=== PATIENT | female | born 1995 | race Caucasian/White ===

== ENCOUNTER 2018-09-10 15:21 | Outpatient (CLI) | payer OTHER ==
[2018-09-10 15:59] LABS: MEAN CORPUSCULAR HEMOGLOBIN 28.4 pg (28.0-34.0)
[2018-09-10 16:00] LABS: BASOPHILS % 1.3 (0.0-1.5); EOSINOPHILS % 1.4 % (0.0-6.8); MONOCYTES % 7.7 % (0.0-11.0); NEUTROPHILS # 1.7 # k/uL (1.4-7.7)
[2018-09-10 16:04] LABS: eGFR (Non-African) > 60
== END 2018-09-10 15:23 ==
LOC: LAB 15:21
PROVIDERS: ATTEND Family Medicine
DX: R63.1 Polydipsia (principal); N92.6 Irregular menstruation, unspecified
CPT/HCPCS: 36415; 80053; 83036; 85025